=== PATIENT | male | born 1960 | race Caucasian/White ===

== ENCOUNTER 2018-09-29 18:00 | Emergency (ER) | payer OTHER ==
--- NOTE | 2018-09-29 18:24 | ED Physician Documentation ---
General Adult - HISTORIAN Historian: patient - HPI Stated Complaint: constipation after pain med regimen Chief Complaint: General Adult Onset: hours Timing: still present Severity: moderate Further Comments: yes (Pt is a 58 yo male with c/o constipation. Pt had been on a pain med regimen and he attributes his constipation to using the pain med. Pt had surgical repair of a fracured R fibula after falling on stairs 2 weeks ago. Pt c/o generalized abd pain, but worse in lower abdomen. No n/v. Pt has not been eating or taking fluids well. No bm x 4 days. Pt has significant hemorrhoids and found some blood when she was about to give pt an enema. She stopped when she saw the blood, not knowing if it was ok to give the enema. Pt had been off oxycodone for more than a week, and had been taking tramadol until last week, prior to developing constipation. Pt also has been having urinary retention. Pt appears uncomfortable on presentation.) - ROS CONST: no problems EYES/ENT: none CVS/RESP: none GI/: abdominal pain, problems urinating (retention), other (constipation) MS/SKIN/LYMPH: other (recent leg surgery for L fibula fx) - PAST HX Past History: hypertension Surgeries/Procedures: other (L fibula fx repair, 2 weeks ago) Allergies/Adverse Reactions: Allergies Allergy/AdvReac Type Severity Reaction Status Date / Time Penicillins Allergy Verified 09/29/18 21:04 Home Medications: Ambulatory Orders Medication Instructions Recorded Aspirin [Nikunj] 81 mg PO D 04/29/16 Benazepril HCl 20 mg PO D 04/29/16 Rosuvastatin Calcium [Crestor] 40 mg PO D 04/29/16 Chlorzoxazone [Parafon Forte Dsc] 500 mg PO QID #20 tablet 04/30/16 Meloxicam [Mobic] 7.5 mg PO BID #20 tablet 04/30/16 - SOCIAL HX Smoking History: non-smoker - FAMILY HX Family History: No - VITAL SIGNS Vital Signs: Vital Signs Temp Pulse Resp BP Pulse Ox 126/66 04/30/16 04:59 - REVIEWED ASSESSMENTS Nursing Assessment Reviewed: Yes Vitals Reviewed: Yes Progress - Progress Progress: NS 1 L IVF x 2 Zofran 4 mg IV Dilaudid 1 mg IV KUB: Impression: Scattered air filled loops of large and small bowel - nonspecific bowel gas pattern. No obstruction. Moderate large bowel stool. No suspicious calcifications by plain film sensitivity. CT abd/pelvis w IV contrast: No evidence of acute abdominal or pelvic visceral process. Rectum distended with stool. trejo cath in & out cath volume voided 1200 cc's oil enema x 1 Fleets enema x 1 soap suds enema x 1 Pt had good bm. Feeling better. General Adult Physical Exam - PHYSICAL EXAM GENERAL APPEARANCE: moderate distress EENT: pharynx normal NECK: normal inspection, supple RESPIRATORY: no resp distress, chest non-tender, breath sounds normal CVS: reg rate & rhythm, heart sounds normal ABDOMEN: soft, tenderness (generalized abd tenderness, but more intense lower abd), decreased BS RECTAL: hemorrhoids BACK: normal inspection, no CVA tenderness SKIN: warm/dry, normal color EXTREMITIES: non-tender, normal range of motion, no evidence of injury NEURO: oriented X3, motor nml, sensation nml Discharge Clincal Impression: Constipation Qualifiers: Constipation type: drug induced constipation Qualified Code(s): K59.03 - Drug induced constipation Referrals: Charanjit Lockett MD [Primary Care Provider] - 2 Days Condition: Stable Disposition: 01 HOME, SELF-CARE Decision to Admit: NO Decision Time: 02:40
[2018-09-29] MEDS ORDERED: 0.9 % SODIUM CHLORIDE 1,000 ML IV ONE (18:35)
[2018-09-29] MEDS ORDERED: ONDANSETRON HCL/PF 4 MG/ 2ML VIAL IVP ONE (18:37)
[2018-09-29 19:40] LABS: MEAN CORPUSCULAR HEMOGLOBIN 29.4 pg (28.0-34.0)
[2018-09-29 19:41] LABS: BASOPHILS % 0.8 (0.0-1.5); EOSINOPHILS % 1.7 % (0.0-6.8); MONOCYTES % 9.2 % (0.0-11.0); NEUTROPHILS # 10.8 # k/uL (1.4-7.7)
[2018-09-29 19:51] LABS: eGFR (Non-African) > 60
[2018-09-29] MEDS ORDERED: HYDROmorphone HCL/PF 1 MG/ML VIAL IVP ONE (21:02)
[2018-09-29] MEDS ORDERED: LIDOCAINE Urojet 5 ML JEL MM ONE (22:08)
[2018-09-29 23:02] LABS: APPEARANCE,URINE CLEAR (CLEAR); COLOR,URINE AMBER (YELLOW)
[2018-09-29 23:03] LABS: OCCULT BLOOD,URINE NEGATIVE (NEGATIVE); PH URINE 6.5 (5.0 - 8.0)
[2018-09-30] MEDS ORDERED: 0.9 % SODIUM CHLORIDE 1,000 ML IV ONE (00:13)
[2018-09-30 03:04] VITALS: BP 100/60
--- NOTE | 2018-09-30 04:14 | Diagnostic Imaging Report ---
ELIJAH BULLOCK [facility] [address] [facility] [address] [place], [place]. [address] Report Submission Date: Sep 29, 2018 9:31:12 PM [employer] Patient Study Name: AUSTIN RIOS Date: Sep 29, 2018 8:38:08 PM [employer] Modality Type: CT\SR Gender: M Description: CT ABD PELVIS W/ CON : 60 Institution: [facility] Physician: ELIJAH BULLOCK CT abdomen and pelvis with contrast Date of study: September 29, 2018. CLINICAL HISTORY: ABD PAIN OUT OF PROPORTION TO EXAM (Hx) / ITS.REASON abd pain out of proportion to exam TECHNIQUE: 5 mm contiguous axial images of the abdomen and pelvis with IV contrast. With; 93 CC OMNIPAQUE FINDINGS: No comparison studies are provided. Bibasilar atelectasis and dependent lung densities are present. Abdomen: The liver, pancreas and spleen are normal in appearance. The gallbladder is unremarkable. The kidneys enhance appropriately and symmetrically. A left renal cortical hypodensity measures up 21.2 cm and appears most consistent with a cyst. The aorta is normal in caliber. There are scattered small bowel air-fluid levels, however, the bowel is nondilated. There is no evidence of free air or free fluid. Pelvis: The colon is normal in appearance. The distal ureters and bladder are normal. Appendix is normal. There is no evidence of free air or free fluid. The rectum is distended with stool. The remaining pelvic structures are within normal limits and the bones of the pelvis are intact. IMPRESSION: No evidence of acute abdominal or pelvic visceral process. Rectum distended with stool. Electronically signed on Sep 29, 2018 9:31:12 PM [employer] by: Jessica MORALES
--- NOTE | 2018-09-30 04:15 | Diagnostic Imaging Report ---
ELIJAH BULLOCK [facility] [address] [facility] [address] [place] [address]. [id number] Report Submission Date: Sep 29, 2018 8:09:13 PM [employer] Patient Study Name: AUSTIN RIOS Date: Sep 29, 2018 7:06:01 PM [employer] Modality Type: DX Gender: M Description: ABDOMEN 1 VIEW : 60 Institution: [facility] Physician: ELIJAH BULLOCK Examination: Abdomen History: ABD PAIN, NO BM X4 DAYS Findings: 3 views obtained of the abdomen. No abnormal dilation of the large or small bowel. Air and stool throughout the large bowel. No suspicious calcification projecting over the renal fossa or the lower pelvic region. Osseous structures are appropriate for age. Impression: Scattered air filled loops of large and small bowel - nonspecific bowel gas pattern. No obstruction. Moderate large bowel stool. No suspicious calcifications by plain film sensitivity. Electronically signed on Sep 29, 2018 8:09:13 PM [employer] by: Rodolfo MORALES
== END 2018-09-30 02:45 | disposition home or self-care (01) ==
LOC: ED 18:00
DX: K59.03 Drug induced constipation (principal); T50.995A Adverse effect of other drugs, medicaments and biological substances, initial encounter; Y92.009 Unspecified place in unspecified non-institutional (private) residence as the place of occurrence of the external cause
CPT/HCPCS: 36415; 74018; 74177; 80053; 81002; 83690; 85025; 85379; 96374; 96375; 99283; 99285; J1170; J2405; J7030; Q9967; S1016